=== PATIENT | male | born 1975 | race Caucasian/White ===

== ENCOUNTER 2017-05-30 10:00 | Emergency (ER) | payer SELFPAY ==
[2017-05-30 10:01] VITALS: BP 173/108; PULSE 97; RESP 16; TEMP 98; O2SAT 96
[2017-05-30] MEDS ORDERED: ZOFR4TAB PO (10:59)
--- NOTE | 2017-05-30 10:59 | PD ---
HPI Chief Complaint: Cold / Flu Symptoms Time Seen by Provider: 22:50 Travel History International Travel<30 days: No Contact w/Intl Traveler<30days: No Traveled to known affect area: No History of Present Illness HPI 41-year-old male here for evaluation of body aches, fever, cough, nausea 3 days. He reports exposure to possible flu. Symptom severity is moderate. He reports the symptoms actually feel improved today but he thought he should seek evaluation before he returns to work tomorrow. No aggravating or alleviating factors. PFSH Past Medical History Medical History: Denies Significant Hx Hx Anticoagulant Therapy: No Diabetes: No Diminished Hearing: No Hypertension: Yes Tetanus Vaccination: Unknown Influenza Vaccination: No Social History Alcohol Use: Yes (3-4 GLASSES WINE DAILY) Tobacco Use: Yes (pt uses "vape") Substance Use: No Allergies-Medications (Allergen,Severity, Reaction): Coded Allergies: No Known Allergies (Unverified Adverse Reaction, Unknown, 05/30/17) Reported Meds & Prescriptions Reported Meds & Active Scripts Active No Active Prescriptions or Reported Medications Review of Systems Except as stated in HPI: all other systems reviewed are Neg General / Constitutional: Positive: Fever Eyes: No: Visual changes HENT: No: Headaches Cardiovascular: No: Chest Pain or Discomfort Respiratory: Positive: Cough, No: Shortness of Breath Gastrointestinal: Positive: Nausea Genitourinary: No: Dysuria Musculoskeletal: Positive: Myalgias Skin: No Rash Physical Exam Narrative GENERAL: Alert and well-appearing 41-year-old male SKIN: Warm and dry. No rash HEAD: Normocephalic. EYES: Pupils equal, round, reactive to light.. No injection or drainage. NECK: Supple, trachea midline. No JVD or lymphadenopathy. No meningismus. CARDIOVASCULAR: Regular rate and rhythm without murmurs, gallops, or rubs. RESPIRATORY: Breath sounds equal bilaterally. No accessory muscle use. GASTROINTESTINAL: Abdomen soft, non-tender, nondistended. MUSCULOSKELETAL: No cyanosis, or edema. BACK: Nontender without obvious deformity. No CVA tenderness. Data Data Last Documented VS Vital Signs Date Time Temp Pulse Resp B/P (MAP) Pulse Ox O2 Delivery O2 Flow Rate FiO2 05/30/17 10:09 Room Air 05/30/17 10:01 98.0 97 16 173/108 (129) 96 MDM Medical Decision Making Medical Screen Exam Complete: Yes Emergency Medical Condition: Yes Differential Diagnosis Influenza, viral illness, gastritis, other Narrative Course 41-year-old male here for evaluation of possible flu. He reports exposure to some similar symptoms. His symptoms are actually improved today. He reports subjective fever, body aches, nausea. He denies vomiting or diarrhea. His abdomen is soft and nontender. His vital signs are stable. He does have elevated blood pressure. He was told the past he had hypertension is not currently on medications. He denies headache, visual changes, chest pain. He was advised to follow-up with the [facility] for blood pressure recheck. Diagnosis Primary Impression: Viral illness Referrals: [facility] Additional Instructions: Your blood pressure was elevated today. Please follow-up with the [facility] for blood pressure recheck. Rest and drink plenty of fluids. Take [id number] ibuprofen 800 mg as needed for body aches and fever Take Zofran as needed for nausea vomiting. Return if he developed new or worsening symptoms Scripts Ondansetron (Zofran) 4 Mg Tab 4 MG PO Q8HR Y for NAUSEA OR VOMITING, #12 TAB 0 Refills Prov: Sarah Shane 05/30/17 Disposition: 01 DISCHARGE HOME Condition: Stable Sarah Shane May 30, 2017 10:59
== END 2017-05-30 11:05 | disposition home or self-care (01) ==
LOC: PHEFT 10:00
DX: B34.9 Viral infection, unspecified (principal); I10 Essential (primary) hypertension; Z72.0 Tobacco use
CPT/HCPCS: 99283